=== PATIENT | female | born 1945 | race Caucasian/White ===

== ENCOUNTER 2020-11-23 13:08 | Observation (INO) | payer OTHER ==
[~2020-11-23] VITALS: Ht 165.1 cm; Wt 98.4 kg
[~2020-11-23 13:08] MED LIST: ASPIRIN EC325 M1 PO; ATENOLOL 25 MG25 M1 PO; CLONIDINE HCL0.2 M2 PO; COLACE100 MG PO; FAMOTIDINE20 MG PO; FOLIC ACID 40400 MC1 PO; HYDROCHLOROTHIA25 M1 PO; HYDROCODON-ACE1 EAC8 PO; MOBIC7.5 MG PO; PRILOSEC 20 MG20 MG PO; VASOTEC20 MG PO; XANAX 0.5 MG0.5 M1 PO
[2020-11-23 13:30] VITALS: BP 221/98
[2020-11-23 13:59] LABS: URINE BILIRUBIN NEGATIVE (Negative); URINE BLOOD NEGATIVE (Negative); URINE CLARITY CLEAR; URINE COLOR YELLOW; URINE GLUCOSE-RANDOM NEGATIVE (Negative); URINE KETONES NEGATIVE (Negative); URINE LEUKOCYTES-REFLEX NEGATIVE (Negative); URINE NITRITE-REFLEX NEGATIVE (Negative); URINE PROTEIN NEGATIVE (Negative); URINE SPECIFIC GRAVITY 1.015 (1.005-1.030); URINE UROBILINOGEN 0.2 E.U./dl (0.2-1.0)
[2020-11-23] MEDS ORDERED: PROAIR HFA8.5 GM INH (13:59)
[2020-11-23 14:08] LABS: ABSOLUTE BASOPHILS 0.1 thou/uL (0.0-0.2); ABSOLUTE EOSINOPHILS 0.2 thou/uL (0.0-0.7); ABSOLUTE LYMPHOCYTES 1.7 thou/uL (0.8-5.3); ABSOLUTE MONOCYTES 0.4 thou/uL (0.0-1.2); ABSOLUTE NEUTROPHILS 2.6 thou/uL (1.6-8.1); BASOPHILS 1.4 %; EOSINOPHILS 3.5 %; HEMATOCRIT 38.8 % (37.0-47.0); HEMOGLOBIN 13.4 gm/dL (12.0-15.0); LYMPHOCYTES 35.3 %; MCH 30.8 pg (26.0-34.0); MCHC 34.6 g/dL (28.0-37.0); MCV 88.8 fL (80.0-100.0); MONOCYTES 7.3 %; MPV 8.8 fl. (7.2-11.1); NUCLEATED RBCS 0 /100WBC; PLATELET COUNT* 237 thou/uL (150-400); POLYS 52.5 %; RBC 4.37 mil/uL (4.20-5.00); RDW-CV 13.4 % (10.5-14.5); WBC 4.9 thou/uL (4.0-11.0)
[2020-11-23 14:14] LABS: CALCIUM 9.1 mg/dL (8.5-10.1); CREATININE 0.9 mg/dL (0.6-1.3); POTASSIUM 3.8 mmol/L (3.5-5.1)
[2020-11-23 14:17] LABS: APTT 24.2 Seconds (25.0-31.3); PROTIME 10.8 Seconds (9.20-11.50)
[2020-11-23 14:18] LABS: ALBUMIN 3.6 g/dL (3.4-5.0); TOTAL BILIRUBIN 0.8 mg/dL (<0.1-1.0); TOTAL PROTEIN 7.2 g/dL (6.4-8.2)
--- NOTE | 2020-11-23 17:30 | EKG ---
[place] [address] ELECTROCARDIOGRAM REPORT Name: TURNERARMANDO RUSSELL Room: [facility]#: [id number] Admission: 11/23/20 Attend Phys: Discharge: Date of : 41 Date of Service: 11/23/20 1328 Report #: [id number] THIS REPORT FOR: //name// [facility] ED Test Date: 2020-11-23 Test Time: 13:28:21 Pat Name: ARMANDO TURNER Department: Room: Gender: Director Camp: [place] : 1945 Requested By: Anju Martínez Order Number: [id number] MD: William Kirkland Measurements Intervals [place] Rate: 62 P: 42 SC: 189 QRS: 12 QRSD: 99 T: 10 QT: 437 QTc: 444 Interpretive Statements Sinus rhythm Probable left atrial enlargement Compared to ECG 02/01/2010 10:30:11 No significant changes Electronically Signed On 11-23-2020 17:30:16 CDT by William Kirkland [email or web address] <ELECTRONICALLY SIGNED> By: William Kirkland MD, [facility] 11/23/20 1730 1328 1328 William Kirkland MD, [facility] /EPI
[2020-11-23 20:03] VITALS: BP 160/76
[2020-11-23 20:19] VITALS: BP 171/85
[2020-11-23] MEDS ORDERED: CLONIDINE HCL0.1 MG PO (22:08)
[2020-11-23] MEDS ORDERED: COZAAR 25 MG TA25 M1 PO (22:10)
[2020-11-24 00:32] VITALS: BP 148/58
[2020-11-24] MEDS ORDERED: ACETAMINOPHEN650 M5 PO (01:45)
[2020-11-24 04:17] VITALS: BP 145/60
[2020-11-24] MEDS ORDERED: PROCARDIA XL30 MG PO (11:50)
[2020-11-24] MEDS ORDERED: TRIAMTERENE-HC1 EAC1 PO (11:50)
[2020-11-24 12:27] VITALS: BP 158/65
--- NOTE | 2020-11-24 12:42 | 2DMMODE ---
[place] [address] 2 D/M-MODE ECHOCARDIOGRAM Name: JOHNNYARMANDO Brodie Room: [address] [place]#: [id number] Admission: 11/23/20 Attend Phys: Timi Brennan Discharge: Date of : 41 Date of Service: 11/24/20 1242 Report #: [id number] THIS REPORT FOR: cc: Alvin Araujo MD, Meng MD Holkins, John M. MD [facility] ~ APPROVED REPORT Study performed: 11/24/2020 09:56:34 EXAM: Comprehensive 2D, Doppler, and color-flow Echocardiogram Patient Location: In-Patient Room #: [facility] Status: routine BSA: 2.05 HR: 62 bpm BP: 145/60 mmHg Rhythm: NSR Other Information Study Quality: Good Indications Chest Pain 2D Dimensions IVSd: 12.50 (7-11mm) LVOT Diam: 18.96 (18-24mm) LVDd: 41.57 mm PWd: 11.67 (7-11mm) Ascending Ao: 30.70 (22-36mm) LVDs: 18.79 (25-40mm) Aortic Root: 27.51 mm Volumes Left Atrial Volume (Systole) LA ESV Index: 30.20 mL/m2 Aortic Valve AoV Peak Mesfin.: 1.61 m/s AO Peak Gr.: 10.33 mmHg LVOT Max P.00 mmHg AO Mean Gr.: 5.34 mmHg LVOT Mean P.32 mmHg LVOT Max V: 1.32 m/s AO V2 VTI: 35.97 cm LVOT Mean V: 0.83 m/s CLAUDIA (VTI): 2.40 cm2 LVOT V1 VTI: 30.53 [place] [address] 2 D/M-MODE ECHOCARDIOGRAM Name: ARMANDO TURNER Room: [address] [place]#: [id number] Admission: 11/23/20 Attend Phys: Timi Brennan Discharge: Date of : 41 Date of Service: 11/24/20 1242 Report #: [id number] Mitral Valve E/A Ratio: 0.79 MV Decel. Time: 257.17 ms MV E Max Mesfin.: 0.76 m/s MV PHT: 74.58 ms MVA (PHT): 2.95 cm2 TDI E/Lateral E': 12.67 E/Medial E': 10.86 Medial E' Mesfin.: 0.07 m/s Lateral E' Mesfin.: 0.06 m/s Pulmonary Valve PV Peak Mesfin.: 0.84 m/s PV Peak Gr.: 2.84 mmHg Tricuspid Valve RAP Estimate: 5.00 mmHg TR Peak Gr.: 22.57 mmHg RVSP: 27.00 mmHg PA Pressure: 27.00 mmHg Left Ventricle The left ventricle is normal size. There is normal LV segmental wall motion. There is normal left ventricular wall thickness. Left ventricular systolic function is normal. The left ventricular ejection fraction is within the normal range. LVEF is 60%. Grade I - abnormal relaxation pattern. Right Ventricle The right ventricle is normal size. The right ventricular systolic function is normal. Atria The left atrium size is normal. The right atrium size is normal. Aortic Valve The aortic valve is normal in structure. No aortic regurgitation is present. There is no aortic valvular stenosis. Mitral Valve The mitral valve is normal in structure. Mild mitral regurgitation. No evidence of mitral valve stenosis. Tricuspid Valve The tricuspid valve is normal in structure. Mild tricuspid regurgitation. [place] [address] 2 D/M-MODE ECHOCARDIOGRAM Name: TURNERARMANDO Brodie Room: [address] Ang#: [id number] Admission: 11/23/20 Attend Phys: Timi Brennan Discharge: Date of : 41 Date of Service: 11/24/20 1242 Report #: [id number] Pulmonic Valve The pulmonary valve is normal in structure. There is no pulmonic valvular regurgitation. Great Vessels The aortic root is normal in size. IVC is normal in size and collapses >50% with inspiration. Pericardium There is no pericardial effusion. <Conclusion> The left ventricle is normal size. Left ventricular systolic function is normal. The left ventricular ejection fraction is within the normal range. LVEF is 60%. Grade I - abnormal relaxation pattern. The right ventricle is normal size. The left atrium size is normal. The aortic valve is normal in structure. The mitral valve is normal in structure. Mild mitral regurgitation. The tricuspid valve is normal in structure. Mild tricuspid regurgitation. No pulmonary hypertension. IVC is normal in size and collapses >50% with inspiration. There is no pericardial effusion. There is normal LV segmental wall motion. <ELECTRONICALLY SIGNED> By: Geo Menon MD, FACC 11/24/20 124 41 41 Geo Menon MD, FACC /INF
--- NOTE | 2020-11-24 14:19 | EKG ---
[place] [address] ELECTROCARDIOGRAM REPORT Name: ARMANDO TURNER Room: [address]#: [id number] Admission: 11/23/20 Attend Phys: Timi Brennan Discharge: Date of : 41 Date of Service: 11/23/20 1444 Report #: [id number] THIS REPORT FOR: //name// [facility] ED Test Date: 2020-11-23 Test Time: 14:44:12 Pat Name: ARMANDO TURNER Department: Room: [facility] Gender: F Consulting Services Associate: : 1945 Requested By: Anju Martínez Order Number: [id number] MD: Geo Menon Measurements Intervals [place] Rate: 61 P: 31 MT: 187 QRS: 11 QRSD: 104 T: -22 QT: 433 QTc: 437 Interpretive Statements Sinus rhythm Borderline repolarization abnormality Compared to ECG 11/23/2020 13:28:21 No significant changes Electronically Signed On 11-24-2020 14:19:21 CDT by Geo Menon [email or web address] <ELECTRONICALLY SIGNED> By: Geo Menon MD, [facility] 11/24/20 1419 1444 1444 Geo Menon MD, [facility] /EPI
[2020-11-24 16:09] VITALS: BP 157/74
--- NOTE | 2020-11-24 17:06 | CARDNUC ---
[place] [address] CARDIAC NUCLEAR IMAGING REPORT Name: ARMANDO TURNER Brodie Room: [address] MZoyaRZoya#: [id number] Admission: 11/23/20 Attend Phys: Timi Brennan Discharge: Date of : 41 Date of Service: 11/24/20 1706 Report #: [id number] THIS REPORT FOR: cc: Alvin Araujo MD, Meng MD Liston, Michael J. MD [facility] ~ APPROVED REPORT Study performed: 11/24/2020 09:02:00 Indication: Chest pain,htn Patient Location: Out-Patient Stress Tech: Jade Blood Stress Nurse: Sultana Hernandez RN NM Tech:OMAR Carter Ht: 5 ft 5 in Wt: 217 lbs BSA: 2.05 m2 BMI: 36.10 Medical History Medical History: COPD, HTN, Hyperlipidemia Medications: losartan, nifedipine, asa, ntg Allergies: pcn, sulfa, ees Cardiac Risk Factors: Age, HTN, Hyperlipidemia Exercise History: Sedentary Pharmacologic Stress Pharmacologic stress test was performed by injecting Regadenoson 0.4 mg IV push over 10-15 seconds immediately followed by the intravenous injection of 31.5 mCi of Tc-99m Sestamibi. Time of stress injection: 1330 Date: 11/24/2020 Administration Route: IV Gated Stress SPECT was performed 40 minutes after stress injection. The images were gated to evaluate regional wall motion and calculate left ventricular ejection fraction. Prone imaging was performed. Stress Test Details Stress Test: Pharmacologic stress testing performed using 0.4 mg of regadenoson per 5 mL given IV over 10 seconds. 60 mg caffeine given for nausea. HR Max Heart Rate (APMHR): 143 bpm Resting HR: 76 bpm Target HR (85% APMHR): 121 [place] [address] CARDIAC NUCLEAR IMAGING REPORT Name: ARMANDO TURNER Room: [address]#: [id number] Admission: 11/23/20 Attend Phys: Timi Brennan Discharge: Date of : 41 Date of Service: 11/24/20 1706 Report #: [id number] Max HR Achieved: 100 bpm % of APMHR: 69 Recovery HR: 92 bpm BP Resting BP: 174/57 mmHg Max BP: 180/52 mmHg Recovery BP: 183/76 mmHg ECG Resting ECG: Sinus Rhythm Stress ECG: Sinus Tachycardia ST Change: None Arrhythmia: None Recovery ECG: Sinus Rhythm Recovery ST Change: None Recovery Arrhythmia: None Clinical Reason for Termination: Completed protocol The patient tolerated Lexiscan infusion without significant cardiac symptoms. Stress ECG Conclusion The baseline twelve-lead EKG shows sinus rhythm without significant ST segment or T wave abnormality. EKGs obtained during and post Lexiscan infusion show sinus rhythm and sinus tachycardia with no significant ST segment or T wave changes when compared to baseline. There were no stress-induced arrhythmias. Study Quality Study: Good Artifact: No artifact Study Data Post stress, the left ventricular ejection was 84%.. Perfusion Perfusion images obtained after Lexiscan stress show uniform uptake of the radioisotope throughout the myocardium. There were no defects to suggest infarct or ischemia. Wall Motion Normal left ventricular wall motion[place] [address] CARDIAC NUCLEAR IMAGING REPORT Name: ARMANDO TURNER Room: [address]#: [id number] Admission: 11/23/20 Attend Phys: Timi Brennan Discharge: Date of : 41 Date of Service: 11/24/20 1706 Report #: [id number] ECG Findings: negative for ischemia Clinical Findings: negative for ischemia Nuclear Findings: negative for ischemia Exercise Capacity: not assessed Left Ventricular Function: normal Risk Study: low Myocardial perfusion images post stress show no defect to suggest infarct or ischemia. Left ventricular systolic function appears normal on gated studies. This is a low risk study. <Conclusion> The baseline twelve-lead EKG shows sinus rhythm without significant ST segment or T wave abnormality. EKGs obtained during and post Lexiscan infusion show sinus rhythm and sinus tachycardia with no significant ST segment or T wave changes when compared to baseline. There were no stress-induced arrhythmias. <ELECTRONICALLY SIGNED> By: William Kirkland MD, FACC 11/24/201705 05 05 William Kirkland MD, FACC /INF
[2020-11-24 18:11] VITALS: BP 157/74
[2020-11-24 18:16] VITALS: BP 157/74
== END 2020-11-24 18:45 | disposition home or self-care (01) ==
LOC: M.ERS 13:08 → M.TBA-ER 17:35 → M.2W 17:35
PROVIDERS: Nurse Practitioner Family; ADMIT Internal Medicine; ATTEND Internal Medicine
DX: R07.89 Other chest pain (principal); Z20.822 Contact with and (suspected) exposure to COVID-19; I16.0 Hypertensive urgency; I11.0 Hypertensive heart disease with heart failure; I50.32 Chronic diastolic (congestive) heart failure; E11.42 Type 2 diabetes mellitus with diabetic polyneuropathy; E78.5 Hyperlipidemia, unspecified; K21.9 Gastro-esophageal reflux disease without esophagitis; G47.30 Sleep apnea, unspecified; K44.9 Diaphragmatic hernia without obstruction or gangrene; J44.9 Chronic obstructive pulmonary disease, unspecified; Z79.82 Long term (current) use of aspirin; Z79.899 Other long term (current) drug therapy